=== PATIENT | male | born 1995 | race Caucasian/White ===

== ENCOUNTER 2025-06-20 19:23 | Emergency (ER) | payer OTHER, SELFPAY ==
[2025-06-20 19:29] VITALS: BP 127/86; PULSE 94; RESP 16; TEMP 37.6; O2SAT 98; BMI 34.3
--- NOTE | 2025-06-20 19:49 | CRLHL7_ITS ---
For Patients: As a result of the Century Cures Act, medical imaging exams and procedure reports are released immediately into your electronic medical record. You may view this report before your referring provider. If you have questions, please contact your health care provider. INDICATION: Chest pain, cough. TECHNIQUE: Chest 2 views. COMPARISON: None. FINDINGS: Cardiovascular and mediastinum: Heart size and vasculature are normal in caliber and appearance. Lungs and pleural spaces: Mild elevation of the right hemidiaphragm. Streaky airspace opacities within the left lung base. No pleural effusion or pneumothorax. Bones and soft tissues: Right upper quadrant surgical clips. Otherwise, unremarkable for age. IMPRESSION: Mild left basilar scarring versus atelectasis. No acute focal consolidation. Dictated by Foreign Sheridan MD @ 06/20/2025 8:31:58 PM (Electronically Signed)
--- NOTE | 2025-06-20 19:55 | ED_ITS ---
HPI - Chest Pain General Date Seen: 06/20/25 Chief Complaint: Shortness of Breath/Dyspnea Stated Complaint: Chest tightness & headache for past 3 days Time Seen by Provider: 06/20/25 19:39 Source: patient and RN notes reviewed Mode of arrival: ambulatory Limitations: no limitations History of Present Illness HPI narrative: Patient is a 29-year-old gentleman who presents here with a 3 day history of bilateral but left greater than right chest pain when takes a deep breath in. He notes that for the last 3 days he has had this, he also overall feels like that he may be coming down with something, as he has a slight headache associated with this. He has been rotating Tylenol and ibuprofen therapeutic doses every 6 hours. Finds this does help him feel better. He does not have any shortness of breath overall, there is no chest pain went when just at rest. He has to take a deep breath and get this. Describes lower chest region bilaterally is lateral lines, does have a slight cough associated with this and says the past when he has had pneumonia at falls like this. Is a smoker, no pre-existing history of any pulmonary or cardiac issues, and he denies any cardiac history in family members. No history of any leg swelling, hemoptysis, any CP. Recent immobilization long trips, or any other risk factors for pulmonary embolism or DVT. Denies any drug use. 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 Past history of cholecystectomy this was done in 2020. MD complaint: chest pain Onset (ago): day(s) Pain radiation: none Severity: moderate Relieving factors: nothing Exacerbating factors: nothing Associated symptoms: cough Treatment prior to arrival: none Risk Factors Coronary artery disease risk factors: none Thoracic aortic dissection risk factors: none Related Data Home Medications ?Medication ?Instructions ?Recorded ?Confirmed No Known Home Medications 06/20/2506/07 Allergies Allergy/AdvReac Type Severity Reaction Status Date / Time No Known Drug Allergies Allergy Verified 06/20/25 19:31 Review of Systems Status of ROS Reports: 10 or more systems reviewed and unremarkable except as noted in History and below Exam Narrative Exam Narrative: Patient is seen in room 6 he is in no apparent distress very nice gentleman speaking to me normally pupils equal round reactive to light there is no scleral icterus redness TMs bilaterally normal oropharynx normal, neck is supple full range of motion, no lymphadenopathy anterior posterior chains in no meningismus, chest is good air entry bilaterally no wheezing crackles noted he does however splint a little bit when he takes a deep breath in heart sounds are normal. There is no rubs noted. Abdomen is soft and obese there is no guarding no organomegaly scars from previous laparoscopic cholecystectomy well healed. Bowel sounds are normal moves all extremities independently and well no edema of lower extremities no tenderness. Const Vital Signs, click to edit/add: Vital Signs - 24 hr 06/20/25 19:29 Temperature 99.7 F H Pulse Rate [Pulse Oximeter] 94 Respiratory Rate 16 Blood Pressure [Right Upper Arm] 127/86 Pulse Oximetry 98 Oxygen Delivery Method Room Air Documenting provider has reviewed patient's vital signs: yes Course Course ED Course: Chest x-ray shows some scarring versus left lower lobe infiltrate, I wonder if this is what is causing his pain is D-dimer fortunately was negative, given his normal oxygen saturation along with the fact that his pretest probability is low. I do not think we needed which she has sickness for is a further. Viral screen was negative, I think coverage with doxycycline however is appropriate, he is a smoker. His laboratory work is otherwise very reassuring with a negative troponin, in the setting of 3 days of chest pain along with his normal EKG. I think at the present time we can discharge him home. He will return if signs symptoms of worsening, we discussed this. Vital Signs Vital signs: Initial Vital Signs Temperature 99.7 F H 06/20/25 19:29 Temperature Source Temporal Artery Scan 06/20/25 19:29 Pulse Rate 94 06/20/25 19:29 Respiratory Rate 16 06/20/25 19:29 Blood Pressure 127/86 06/20/25 19:29 Blood Pressure Mean 99 06/20/25 19:29 Blood Pressure Position Standing 06/20/25 19:29 Pulse Oximetry 98 06/20/25 19:29 Oxygen Delivery Method Room Air 06/20/25 19:29 Vital Signs Temperature 99.7 F H 06/20/25 19:29 Pulse Rate 94 06/20/25 19:29 Respiratory Rate 16 06/20/25 19:29 Blood Pressure 127/86 06/20/25 19:29 Pulse Oximetry 98 06/20/25 19:29 Oxygen Delivery Method Room Air 06/20/25 19:29 Temperature 99.7 F H 06/20/25 19:29 Pulse Rate 94 06/20/25 19:29 Respiratory Rate 16 06/20/25 19:29 Blood Pressure 127/86 06/20/25 19:29 Pulse Oximetry 98 06/20/25 19:29 Oxygen Delivery Method Room Air 06/20/25 19:29 Medications Administered Medications: Generic Name Dose Route Start Last Admin Trade Name Freq PRN Reason Stop Dose Admin Sodium Chloride 1,000 mls @ 1,000 mls/hr 06/20/25 20:00 06/20/25 20:24 0.9 % Sodium Chloride 1000 Ml IV 06/20/25 20:59 1,000 mls/hr .Q1H SIMA Administration Discontinued Medications Generic Name Dose Route Start Last Admin Trade Name Freq PRN Reason Stop Dose Admin Aspirin 324 mg 06/20/25 19:49 06/20/25 20:23 Aspirin 81 Mg Tab.Chew PO 06/20/25 19:50 324 mg ONCE ONE Administration MDM - Chest Pain MDM Narrative Medical decision making narrative: During the evaluation of this patient I considered multiple differential diagnosis is. The life-threatening differential diagnosis include coronary disease/ID, pulmonary embolism, pneumothorax, pneumonia, and aortic dissection. Other differential diagnosis included but were not limited to pericarditis, myocarditis, chest wall pain, GERD, esophageal rupture, rib fracture contusion, pleurisy, as well as other etiologies. Medical Records Data Attestation: I reviewed the patient's medical records. Lab Data Attestation: I reviewed the patient's lab results. Labs: Lab Results 06/20/25 06/20/25 06/20/25 Range/Units 19:30 19:49 20:10 WBC 7.69 (4.50-11.00) K/uL RBC 4.88 (4.30-5.90) m/uL Hgb 15.2 (13.5-17.5) gm/dL Hct 44.1 (37.0-53.0) % MCV 90 (80-100) fL MCH 31 (26-34) pg MCHC 35 (32-36) gm/dL RDW Coeff of Annelise 12.1 (11.5-15.5) % Plt Count 281 (140-440) K/uL Neut % (Auto) 70.2 (42.0-72.0) % Lymph % (Auto) 13.0 L (20-44) % [place] % (Auto) 13.9 H (0.0-11.0) % Eos % (Auto) 2.1 (0.0-7.0) % Baso % (Auto) 0.4 (0.0-3.0) % Neut # (Auto) 5.40 (1.7-7.0) K/uL Lymph # (Auto) 1.00 (0.90-2.90) K/uL [place] # (Auto) 1.10 H (0.00-0.90) K/UL Eos # (Auto) 0.16 (0.00-0.50) K/uL Baso # (Auto) 0.03 (0.00-0.30) K/uL Abs Immat Gran (auto) 0.03 (0.00-0.30) K/uL Imm/Tot Granulo (auto) 0.4 % D-Dimer Quant (PE/DVT) 0.27 (0.00-0.50) ug/ml Sodium 136 (135-149) mmol/L Potassium 3.8 (3.6-5.1) mmol/L Chloride 105 (96-114) mmol/L Carbon Dioxide 25 (20-32) mmol/L Anion Gap 6 L (7-15) mEq/L BUN 9 (5-24) mg/dL Creatinine 0.7 (0.5-1.5) mg/dL Estimated Creat Clear 177.56 Estimated GFR 129 ml/min Glucose 96 (60-115) mg/dL Calcium 9.0 (8.4-10.6) mg/dL C-Reactive Protein 5.9 H (0.5-1.0) mg/dL NT-Pro-B Natriuret Pep 59 (See Note) pg/mL Procalcitonin 0.18 (<0.50) ng/mL SARS-CoV-2 (PCR) Negative SARS-CoV-2 (Negative) Influenza Type A (PCR) Negative PCR FLU A (Negative) Influenza Type B (PCR) Negative PCR FLU B (Negative) RSV (PCR) Negative PCR RSV (Negative) POC Troponin I 0.00 L (0.01-0.04) ng/ml Imaging Data Chest x-ray: Attestation: I have reviewed the pertinent imaging results. My impression: Left lower lobe infiltrate Radiologist's impression: [address] [address] Diagnostic Imaging Report Patient: Lester Amado MR#: [id number] : 1995 Acct:[id number] Loc: ED Service Date: 06/20/[address]: Ordering Physician: Mehdi Garrett M.D. Date of Service: 06/20/25 Procedure(s): XR chest 2V Accession Number(s): [id number] cc: Provider,Not a Local; Mehdi Garrett M.D.~ For Patients: As a result of the Cures Act, medical imaging exams and procedure reports are released immediately into your electronic medical record. You may view this report before your referring provider. If you have questions, please contact your health care provider. INDICATION: Chest pain, cough. TECHNIQUE: Chest 2 views. COMPARISON: None. FINDINGS: Cardiovascular and mediastinum: Heart size and vasculature are normal in caliber and appearance. Lungs and pleural spaces: Mild elevation of the right hemidiaphragm. Streaky airspace opacities within the left lung base. No pleural effusion or pneumothorax. Bones and soft tissues: Right upper quadrant surgical clips. Otherwise, unremarkable for age. IMPRESSION: Mild left basilar scarring versus atelectasis. No acute focal consolidation. Dictated by Foreign Sheridan MD @ 06/20/2025 8:31:58 PM (Electronically Signed) ECG Data Attestation: I personally reviewed and interpreted this ECG as follows: ECG interpretation date: 06/20/25 Prior ECG tracings: not available for review Interpretation: EKG shows normal sinus rhythm, with a ventricular rate of 92, normal QRS is 96 milliseconds normal QT QTC. Assessment: Normal EKG no acute change Discharge Plan Discharge Clinical Impression: Chest pain, Cough, Pneumonia Patient Disposition: Home, Self-Care Condition: Stable Instructions: Chest Pain (DC), Community Acquired Pneumonia (DC), Chest Wall Pain (ED) Additional Instructions: Home rest use of antibiotics continue with Tylenol ibuprofen, chest x-ray showed that there was some scarring versus pneumonia left greater than right, suspect that this is what is causing her pain there may be an element also call pleurisy also. See how it goes, increasing fevers chills, nausea vomiting, or worsening chest pain then returned, test for blood clot was also negative as was her test for heart attack. EKG was otherwise. Activity Level: Light activity Discharge Diet: Regular Prescriptions: No Action No Known Home Medications Follow Up/Referrals: Provider,Not a Local [Primary Care Provider, Family Practice] Stand Alone Forms: [employer] Info Instructions
[2025-06-20 20:16] LABS: PCR FLU A Negative PCR FLU A (Negative); PCR FLU B Negative PCR FLU B (Negative); PCR RSV Negative PCR RSV (Negative); SARS PCR* Negative SARS-CoV-2 (Negative)
[2025-06-20 20:17] LABS: Hematocrit* 44.1 % (37.0-53.0); Hemoglobin* 15.2 gm/dL (13.5-17.5); Immature Granulocytes Abs Auto 0.03 K/uL (0.00-0.30); Immature Granulocytes Pct Auto 0.4 %; Lymphocytes Absolute Auto 1.00 K/uL (0.90-2.90); Mean Corpuscular HGB Conc 35 gm/dL (32-36); Mean Corpuscular Hemoglobin 31 pg (26-34); Mean Corpuscular Volume 90 fL (80-100); RDW Coefficient of Variation % 12.1 % (11.5-15.5); Red Blood Count* 4.88 m/uL (4.30-5.90); White Blood Count* 7.69 K/uL (4.50-11.00)
--- OUTSIDE RECORDS SUMMARY | 2025-06-20 20:20 | XMS_ITS | Encounter Summary ---
Author Organization [employer] Address [address], [place] [address] Care Team Providers Care Global Product Manager Name Role Phone Marcel Hall MD Primary Care Provider [phone] Encounter Details Date Type Department Care Team (Late st Contact Info) Description 09/16/2013 Outside Hospital External to Tara Ruby PROGRESS NOTE MENTAL HEALTH Social History Tobacco Use Types Packs/Day Years Used Date Smoking Tobacco: Passive Smo ke Exposure - Never Smoker Smokeless Tobacco: Never Alcohol Use Standard Drinks/Week Comments No 0 (1 standard drink = 0.6 oz pur e alcohol) Sex and Gender Information Value Date Recorded Sex Assigned at Not on file Legal Sex Male 6:26 AM CDT Gender Identity Not on file Sexual Orientation Not on file documented as of this encounter Progress Notes * Tara Pacheco - 09/16/2013 12:00 AM CST PICKLER documented in this encounter Plan of Treatment Not on file documented as of this encounter Visit Diagnoses Not on filedocumented in this encounter Care Teams Global Product Manager Relationship Specialty Start Date End Date Marcel Hall MD [address] [place] [address] PCP - General 08/07/06 documented as of this encounter
--- OUTSIDE RECORDS SUMMARY | 2025-06-20 20:20 | XMS_ITS | Encounter Summary ---
Author Organization [employer] Address [address], [place] [address] Care Team Providers Care Truckload Owner Operator Name Role Phone Marcel Hall MD Primary Care Provider [phone] Encounter Details Date Type Department Care Team ([facility] st Contact Info) Description 02/15/[address] [facility] Pediatrics [address] [place], [place] [id number] Marcel Hall MD [address] [place] [address] DSM IV CRITERIA Social History Tobacco Use Types Packs/Day Years [...] as of this encounter Progress Notes * Marcel Hall MD - 02/15/2012 12:00 AM CDT documented in this encounter Plan of Treatment Not on file documented as of this encounter Visit Diagnoses Not on filedocumented in this encounter Care Teams Truckload Owner Operator Relationship Specialty Start Date End Date Marcel Hall MD [address] [place] [address] PCP - General 08/07/06 documented as of this encounter
--- OUTSIDE RECORDS SUMMARY | 2025-06-20 20:20 | XMS_ITS | Encounter Summary ---
Author Organization [employer] Address [address], [place] [address] Care Team Providers Care Director Of Market Intelligence Name Role Phone Marcel Hall MD Primary Care Provider [phone] Encounter Details Date Type Department Care Team (Late st Contact Info) Description 09/16/2013 Emergency Room External to Taar Ruby DEPRESSION SUICIDAL IDEATION Social History Tobacco Use Types Packs/Day Years [...] of this encounter Progress Notes * Tara Provider - 09/16/2013 12:00 AM CST ERCIAL HELICOPTER PILOT documented in this encounter Plan of Treatment Not on file documented as of this encounter Visit Diagnoses Not on filedocumented in this encounter Care Teams Director Of Market Intelligence Relationship Specialty Start Date End Date Marcel Hall MD [address] [place] [address] PCP - General 08/07/06 documented as of this encounter
--- OUTSIDE RECORDS SUMMARY | 2025-06-20 20:20 | XMS_ITS | Clinical Summary ---
Author Organization [employer] Address [address], [place] [address] Care Team Providers Care Mens Locker Room Attendant Name Role Phone Marcel Hall MD Primary Care Provider [phone] Source Comments You are receiving this document as you are listed as the primary care provider,follow-up provider, or the patient has been referred to you for consultation.This is in compliance with the Medicare and[facility] Cent[facility]aid EHR Incentive Program,which states Providers who transition their patient to another setting of careor provider of care or refers their patient to another provider of care shouldprovide summary care record for each transition of care or referral. [employer] Allergies Active Allergy Reactions Criticality Noted Date Comments Influenza Virus Vaccine Nausea And Vomiting High Medications cloniDINE (AKA CATAPRES) 0.1 MG tabletIndicatio ns:Insomnia Take 1 Tab by mouth daily at bedtime. 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 Vitamin K deficiency coagulation disorder 2009 Attention deficit hyperactivity disorder (ADHD) 05/23/2007 Resolved Problems Problem Noted Date Diagnosed Date Resolved Date Proteinuria 07/22/2009 01/19/2010 Insomnia 01/11/2009 01/19/2010 Immunizations Immunization Administration Dates Next Due DTaP 12/28/1997, 7,02/19/1997,1996 Flu Vac (3+ yrs) 08/09/2006 HepB Ped/Adol (0-18 yrs) 07/26/1997,1996,1 11/01/1995 Hib, Unspecified Formulation 12/28/1997, 07/26/1997,02/18/1997,1996 IPV (Polio) 02/12/2002, 8,02/18/1997,1996 Influenza LAIV3 2-49 years (Flumist) 07/22/2009 MCV4 (Menactra) 01/11/2009 MMR 02/12/2002,12/28/1997 OPV, Trivalent (Orimune or tOPV) 12/28/1997 Tdap 2020,01/11/2009 Varicella 01/11/2009,12/28/1997 Social History Tobacco Use Types Packs/Day Years Used Date Smoking Tobacco: Every Day Cigarettes 1 13.7 Started: 10/07/2011 Passive Smoke Exposure: Yes Smokeless Tobacco: Never Tobacco Cessation:Ready to Q uit: Not Asked; Counseling Given: Not Answered Alcohol Use Standard Drinks/Week Comments No 0 (1 standard drink = 0.6 oz pur e alcohol) Sex and Gender Information Value Date Recorded Sex Assigned at Not on file Legal Sex Male 6:26 AM CDT Gender Identity Not on file Sexual Orientation Not on file Last Filed Vital Signs Vital Sign Reading Time Taken Comments Blood Pressure 121/74 09/14/2022 8:40 AM RADAR SCIENTIST Pulse 67 09/14/2022 8:40 AM RADAR SCIENTIST Temperature 36.4 C (97.6 F) 08/31/2022 1:19 AM RADAR SCIENTIST Respiratory Rate 24 08/31/2022 1:19 AM RADAR SCIENTIST Oxygen Saturation 94% 08/31/2022 4:04 AM RADAR SCIENTIST Inhaled Oxygen Concentration - - Weight 113.9 kg (251 lb 1.6 oz) 09/14/2022 8:40 AM RADAR SCIENTIST Height 185.4 cm (6' 1) 09/14/2022 8:40 AM RADAR SCIENTIST Body Mass Index 33.13 09/14/2022 8:40 AM RADAR SCIENTIST Plan of Treatment Health Maintenance Due Date Last Done Comments Hep C Screening (Preventive Services) 1996 HIV Screening (Preventive Services) 2012 Adult Preventive Visit 2014 01/11/2009 Pneumococcal Vaccine (1 of 2 - PCV) 2015 COVID-19 Vaccine (3 - season) 2025 06/18/2021, 05/20/2021 Influenza Vaccine (#1) 2025 07/22/2009, 2005 DTaP/Tdap/Td Vaccine (7 - Tdap) 2030 2020, 01/11/2009, 12/28/1997, Additional history exists Zoster/Shingles Vaccine (1 of 2) 2046 HepB Vaccine Completed 07/26/1997, 01/1997, 1996 Hib Vaccine Completed 12/28/1997, 07/08, 02/18/1997, Additional history exists IPV (Polio) Vaccine Completed 02/12/2002, 12/28/1997, 12/28/1997, Additional history exists MCV4 Vaccine Aged Out 01/11/2009 No longer eligi ble based on patient's age to complete this topic Varicella Vaccine Completed 01/11/2009, 12/28/1997 HepA Vaccine Completed 12/11/2013, 05/27/2012 HPV Vaccine Completed 04/02/2014, 04/2014, 05/27/2012 Meningococcal B Vaccine Aged Out No l onger eligible based on patient's age to complete this topic Insurance * Guarantor: Lester Amado Account Type Relation to Patient Date of Phone Billing Address Personal/Family Self 1995 RETURNED MAIL [phone] [place] [address] [facility] INS[facility]ED * Guarantor: Lester Amado Account Type Relation to Patient Date of Phone Billing Address Personal/Family Self 1995 RETURNED MAIL [phone] [place] [address] Care Teams Mens Locker Room Attendant Relationship Specialty Start Date End Date Marcel Hall MD [address] [place] [address] (work) PCP - General 08/07/06
--- OUTSIDE RECORDS SUMMARY | 2025-06-20 20:20 | XMS_ITS | Encounter Summary ---
Author Organization [employer] Address [address] [address] Care Team Providers Care Supervisor Cold Rolling Name Role Phone Marcel Hall MD Primary Care Provider [phone] Encounter Details Date Type Department Care Team (Late st Contact Info) Description 09/16/2013 Outside Hospital External to External, [place] [address] PROGRESS NOTE Social History Tobacco Use Types Packs/Day Years [...] as of this encounter Progress Notes * External, Provider - 09/16/2013 12:00 AM CST RTAINER OR VARIETY ARTIST documented in this encounter Plan of Treatment Not on file documented as of this encounter Visit Diagnoses Not on filedocumented in this encounter Care Teams Supervisor Cold Rolling Relationship Specialty Start Date End Date Marcel Hall MD [address] [place] [address] PCP - General 08/07/06 documented as of this encounter
--- OUTSIDE RECORDS SUMMARY | 2025-06-20 20:20 | XMS_ITS | Clinical Summary ---
Author Organization [employer] [facility] Address [facility] [place] [address] Care Team Providers Care Process Server Name Role Phone Didier Valenzuela PA-C Primary Care Provider Allergies Active Allergy Reactions Criticality Noted Date Comments Influenza Virus Vaccines Fever 03/14/2009 Medications oxyCODONE-aceta minophen (PERCOCET) 5-325 mg per tabletIndicatio ns:Hydrops of gallbladder Take 1-2 Tablets by mouth every 4 hours if needed for Pain. Max acetaminophen dose: 4000mg in 24 hrs. 15 Tablet 10/11/2022 3:26 PM POLICE LIEUTENANT 3 Active Active Problems Problem Noted Date Diagnosed Date Attention deficit disorder without mention of hy peractivity 09/10/2007 Open fracture of shaft of radius (alone) 007 Immunizations Immunization Administration Dates Next Due DTaP 12/28/1997,07/26/1997,02/18/1997 ,1996 HIB PRP-OMP (PedvaxHIB) 12/28/1997,07/26/1997,,1996 Hepatitis A (Peds) 12/11/2013,05/27/2012 Hepatitis B (Peds) 07/26/1997,1996, 996 Human Papilloma Virus Vaccine 04/02/2014, 014,05/27/2012 Inactivated Polio Vaccine 02/12/2002,12/28/1997, 02/18/1997,1996 Influenza, IIV3 (Age >=3 years) 07/22/2009,08/09 MMR 02/12/2002,12/28/1997 Meningococcal Vaccine (Menactra) 01/11/2009 Tdap 01/11/2009 Varicella Vaccine 01/11/2009,12/28/1997 Family History Medical History Relation Name Comments Diabetes Brother Diabetes Mother Relation Name Status Comments Brother Mother Social History Tobacco Use Types Packs/Day Years Used Date Smoking Tobacco: Every Day Cigarettes Smokeless Tobacco: Never Tobacco Cessation:Ready to Q uit: Not Asked; Counseling Given: Not Answered Comments:in the house Alcohol Use Standard Drinks/Week Comments No 0 (1 standard drink = 0.6 oz pur e alcohol) Sex and Gender Information Value Date Recorded Sex Assigned at Not on file Legal Sex Male 5:37 AM POLICE LIEUTENANT Gender Identity Not on file Sexual Orientation Not on file Obstetrics History Last Filed Vital Signs Vital Sign Reading Time Taken Comments Blood Pressure 120/66 10/11/2022 7:20 PM POLICE LIEUTENANT Pulse 78 10/11/2022 7:20 PM POLICE LIEUTENANT Temperature 36.3 C (97.4 F) 10/11/2022 4:28 PM POLICE LIEUTENANT Respiratory Rate 16 10/11/2022 7:20 PM POLICE LIEUTENANT Oxygen Saturation 99% 10/11/2022 7:20 PM POLICE LIEUTENANT Inhaled Oxygen Concentration - - Weight 112.5 kg (248 lb 1.6 oz) 023 11:12 AM POLICE LIEUTENANT Height 185.4 cm (6' 1) 10/11/2022 11:1 2 AM POLICE LIEUTENANT Body Mass Index 32.73 10/11/2022 11:12 AM POLICE LIEUTENANT Plan of Treatment Health Maintenance Due Date Last Done Comments Depression screening for age 12+ 2008 HIV for age 15-65 2011 Hepatitis C screening for ag e 18-79 2014 BMI (ht and wt on same day) for age 18+ 05/22/2018 05/22/2017 Tetanus booster 01/11/2019 01/11/2009 COVID-19 vaccine series ( season) 2025 06/18/2021, 05/20/2021 RSV vaccine for adults or (1 - 1-dose 75+ series) 2071 Hepatitis B series for 19+ Completed 07/26, 1996, 1996 HPV series for age 9-45 Completed 04/02/20 14, 12/11/2013, 05/27/2012 Pneumococcal series for age 6-49 Aged Out No longer eligible b ased on patient's age to complete this topic Insurance [facility] Advance Directives * Full Code (Latest Code Status on File) Date Activated Date Inactivated Comments 10/11/2022 11:41 AM 10/11/2022 9:42 PM Question Answer Comments Code Status Discussion: Discussed Care Teams Process Server Relationship Specialty Start Date End Date Didier Valenzuela PA-C [address] [place] [address] PCP - General Family Practice 09/26/22
--- OUTSIDE RECORDS SUMMARY | 2025-06-20 20:20 | XMS_ITS | Encounter Summary ---
Author Organization [facility] Address [address], [place] [address] Care Team Providers Care Fire Engine Pump Operator Name Role Phone Marcel Hall MD Primary Care Provider [phone] Encounter Details Date Type Department Care Team (Late st Contact Info) Description 11/11/2013 Outside Hospital External to Cesar Santiago PSYCHE DISCHARGE SUMMARY Social History Tobacco Use Types Packs/Day Years [...] as of this encounter Progress Notes * Cesar Santiago - 11/11/2013 12:00 AM CST MATIC OVEN OPERATOR documented in this encounter Plan of Treatment Not on file documented as of this encounter Visit Diagnoses Not on filedocumented in this encounter Care Teams Fire Engine Pump Operator Relationship Specialty Start Date End Date Marcel Hall MD [address] [place] [address] PCP - General 08/07/06 documented as of this encounter
--- OUTSIDE RECORDS SUMMARY | 2025-06-20 20:20 | XMS_ITS | Clinical Summary ---
Author Organization [facility] Address [address] [place] [address] Care Team Providers Care Egg Worker Name Role Phone Ebony Domingo DRIVER MEDIC, PMHNP Primary Care Provider [phone] Source Comments PLEASE NOTE, if this patient is a minor, it may be UNLAWFUL to discuss sensitive information that is contained in these records (such as FAMILY PLANNING, MENTAL HEALTH or SUBSTANCE ABUSE) with the minor patient's parent or other person without the patient's specific authorization.[facility] Allergies No known active allergies Medications No known medications Active Problems No known active problems Immunizations Immunization Administration Dates Next Due DTAP (Infanrix) 12/28/1997, 7,02/19/1997,11/10 HEP B, PED/ADOL (SBAGCIF-M-ERKV/RECOMBIVAX-PEDS) 07/26/1997,1996,1996 HPV, QUADRIVALENT 04/02/2014,12/11/2013,05/27/20 12 Hep A, Ped/adol, 2 Dose 12/11/2013,05/27/2012 Hib, unspecified 12/28/1997, 7,02/18/1997,11/10 INFLUENZA, SEASONAL, INJECTABLE 08/09/2006 IPV (IPOL) 02/12/2002,02/18/1997,1996 Influenza Virus Vaccine (FLU MIST), Live Intranasal 07/22/2009 MENINGOCOCCAL MCV4P (MENACTRA) 01/11/2009 MMR (MMR II/Priorix) 02/12/2002,12/28/1997 OPV, Trivalent 12/28/1997 TDAP 2020,01/11/2009 Varicella (Varivax), Live Vaccine 01/11/2009, Social History Tobacco Use Types Packs/Day Years Used Date Smoking Tobacco: Every Day Cigarettes 0.5 7 Smokeless Tobacco: Never Tobacco Cessation:Ready to Q uit: No; Counseling Given: Yes Alcohol Use Standard Drinks/Week Comments Not Currently 0 (1 standard drink = 0.6 oz pur e alcohol) Social Connections Answer Date Recorded Connectedness 0 06/18/2024 Financial Resource Strain Answer Date R ecorded Financial Resource Strain 0 2020 Stress Answer Date Recorded Stress 0 09/06/2021 Physical Activity Answer Date Recorded Physical Activity 0 09/06/2021 Food Insecurity Answer Date Recorded Food 0 07/02/2024 Transportation Needs Answer Date Record ed Transportation 0 09/06/2021 Housing Stability Answer Date Recorded Housing 0 09/06/2021 Safety and Environment Answer Date Vinicio rded Safety 0 09/06/2021 Utilities Answer Date Recorded Utilities 0 09/06/2021 Employment Answer Date Recorded Stress 0 06/18/2024 Sex and Gender Information Value Date Recorded Sex Assigned at Male 09/06/2021 11:46 AM PST Legal Sex Male 10:05 AM PST Gender Identity Male 09/06/2021 11:46 AM PST Sexual Orientation Straight 09/06/2021 11 :46 AM PST Last Filed Vital Signs Vital Sign Reading Time Taken Comments Blood Pressure 118/77 09/06/2021 1:46 PM FINANCE TEACHER Pulse 69 09/06/2021 1:46 PM FINANCE TEACHER Temperature 36.4 C (97.5 F) 09/06/2021 1:46 PM FINANCE TEACHER Respiratory Rate - - Oxygen Saturation - - Inhaled Oxygen Concentration - - Weight 117.8 kg (259 lb 9.6 oz) 09/06/2021 1:46 PM FINANCE TEACHER Height 181 cm (5' 11.26) 09/06/2021 1:46 PM FINANCE TEACHER Body Mass Index 35.94 09/06/2021 1:46 PM FINANCE TEACHER Plan of Treatment Not on file Care Teams Egg Worker Relationship Specialty Start Date End Date Ebony Domingo, DRIVER MEDIC, PMHNP [address] [phone] PCP - General Family Medicine, GYROSCOPIC INSTRUMENT TESTER 09/05/21
--- OUTSIDE RECORDS SUMMARY | 2025-06-20 20:20 | XMS_ITS | Encounter Summary ---
Author Organization [facility] Address [address] [address] Care Team Providers Care Patient Transport Officer Name Role Phone Marcel Hall MD Primary Care Provider [phone] Encounter Details Date Type Department Care Team ([facility] st Contact Info) Description 12/29/2012 Correspondence [facility] [address] [place] [address] Marcel Hall MD [address] [place] [address] MED DOCUMENTATION ADHD Social History Tobacco Use Types Packs/Day Years [...] Progress Notes * Marcel Hall MD - 12/29/2012 12:00 AM CDT documented in this encounter Plan of Treatment Not on file documented as of this encounter Visit Diagnoses Not on filedocumented in this encounter Care Teams Patient Transport Officer Relationship Specialty Start Date End Date Marcel Hall MD [address] [place] [id number] PCP - General 08/07/06 documented as of this encounter
[2025-06-20 20:21] LABS: Slide Review Reflex No
[2025-06-20] MEDS: ASPIRIN 81 MG TAB.CHEW 324 MG PO (20:23)
[2025-06-20 20:29] LABS: Chloride* 105 mmol/L (96-114); Sodium* 136 mmol/L (135-149)
[2025-06-20 20:30] LABS: Potassium* 3.8 mmol/L (3.6-5.1)
[2025-06-20 20:32] LABS: Blood Urea Nitrogen* 9 mg/dL (5-24); Creatinine* 0.7 mg/dL (0.5-1.5); Est. Creatinine Clearance* 177.56; Estimated Glomerular Filt Rate 129 ml/min
[2025-06-20 20:33] LABS: Anion Gap 6 mEq/L (7-15); Calcium* 9.0 mg/dL (8.4-10.6); Carbon Dioxide* 25 mmol/L (20-32); Glucose* 96 mg/dL (60-115)
[2025-06-20 20:34] LABS: Troponin, Point-of-Care* 0.00 ng/ml (0.01-0.04)
[2025-06-20 20:35] LABS: D Dimer Quantitative* 0.27 ug/ml (0.00-0.50)
[2025-06-20 20:50] LABS: NT Pro B Type NatriureticPept* 59 pg/mL (See Note); Procalcitonin* 0.18 ng/mL (<0.50)
== END 2025-06-20 21:10 | disposition home or self-care (01) ==
PROVIDERS: Emergency Provider Family Medicine
DX: R07.9 Chest pain, unspecified (principal); J18.9 Pneumonia, unspecified organism
CPT/HCPCS: 36415; 71046; 80048; 83880; 84145; 84484; 85025; 85379; 86140; 87631; 93005; 94761; 99284; A9270; J7030